=== PATIENT | male | born 1950 | race Caucasian/White ===

== ENCOUNTER 2021-12-19 08:58 | Day surgery (SDC) | payer MEDICARE, BC ==
--- NOTE | 2021-12-19 08:50 | HP ---
DATE OF SURGERY: 12/19/2021 HISTORY OF PRESENT ILLNESS: The patient is a 71-year-old had anemia with hemoglobin of 7.2, had some dark stools once in a while. No bright red blood. No pain. No change in bowel movements. Alternating stools and loose stools. Family history negative for colon cancer, negative for stomach cancer. Last colonoscopy in about 2002 and he had some polyps then. Given his anemia, it is felt that he would benefit from upper and lower endoscopy for further evaluation. PAST MEDICAL HISTORY: Hypertension, gastroesophageal reflux disease, chronic kidney disease. PAST SURGICAL HISTORY: Heart cath in the past. 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 Abdominal aortic aneurysm surgery in the past. Double hernia surgery in the past. Fistula in his arm in the past. MEDICATIONS: Glimepiride, amlodipine, metoprolol, iron plus vitamin C, PreserVision, vitamin B6, sodium bicarbonate, Sevelamer carbonate, Calcitriol, glucosamine chondroitin. ALLERGIES: IODINATED CONTRAST MEDIA. METHYLPHENIDATE (RITALIN). FAMILY HISTORY: Negative for colon cancer, negative for stomach cancer. SOCIAL HISTORY: No smoking or alcohol abuse. REVIEW OF SYSTEMS: Fourteen systems reviewed. No chest pain or palpitations. Other systems negative or noncontributory as above and per admission questionnaire. PHYSICAL EXAMINATION: GENERAL: No acute distress. HEENT: Sclerae nonicteric. NECK: No JVD. CHEST: Equal excursion, nonlabored breathing. CVS: Regular rate and rhythm. ABDOMEN: Soft. No peritoneal signs. EXTREMITIES: No significant edema. NEURO: Alert, oriented, moving extremities symmetrically. RECTAL: Deferred timed to endoscopy exam. PSYCH: Appropriate mood and affect. IMPRESSION: Anemia. He is in need of upper and lower for further evaluation to evaluate for the etiology. General risks of bleeding or infection, risk of bowel injury or perforation possibly requiring open procedure or ongoing morbidity, risk of missed or nondiagnosis or incomplete exam possibly requiring barium enema, barium swallow, other studies or procedures. General risk of anesthesia or sedation, risk of bowel prep, possibility of inability to determine the etiology of his anemia which may require further testing and/or other studies and work up. He understands and agrees to the planned procedure, will proceed with EGD and colonoscopy as an outpatient.
[2021-12-19] MEDS ORDERED: Lactated Ringers 1,000 ML IV SCH (09:30)
[2021-12-19 09:56] VITALS: O2SAT 97
[2021-12-19] MEDS ORDERED: D50W 50ML Vial IV SCH (10:30)
[2021-12-19] MEDS ORDERED: DIPRIVAN 200 MG/20 ML IV ONE ×3 (11:41→12:09)
[2021-12-19 13:30] VITALS: BP 146/72; PULSE 73
--- NOTE | 2021-12-19 14:19 | OP ---
SURGERY DATE/TIME: 12/19/2021 1142 PREOPERATIVE DIAGNOSIS: Anemia, need for upper and lower endoscopy. POSTOPERATIVE DIAGNOSES: 1) Mild erosive gastritis with some evidence of petechial hemorrhage without visible evidence of any large ulcers or other visible bleeding source. 2) Short segment early distal gastroesophagitis, path pending. 3) Fair but limited bowel prep. 4) Mild diverticulosis. 5) Small polyps transverse colon, sigmoid colon, rectosigmoid colon. PROCEDURES: 1) EGD with cold biopsy of antrum for Helicobacter pylori. 2) Cold biopsy distal esophagus to evaluate for very short segment of 1.5 mm early distal gastroesophagitis versus a little small island of Emerson's esophagus, path pending. 3) Colonoscopy to cecum. 4) Hot biopsy polypectomy small transverse colon polyp. 5) Hot biopsy polypectomy small sigmoid colon polyp x2. 6) Hot biopsy polypectomy small rectosigmoid colon polyps versus hyperplastic lesion x2. SURGEON: Dr. Tutu Hyde. ANESTHESIA: MAC. ESTIMATED BLOOD LOSS: Minimal. INDICATIONS: As noted above. Risks and benefits explained in detail and not limited to and consent obtained. DESCRIPTION OF PROCEDURE AND FINDINGS: The patient is taken to the endoscopy room. MAC anesthesia introduced. After official time out and no disagreement with planned procedure, bite block positioned. Video gastroscope easily passed down the esophagus to the patent pylorus to the junction into the third portion of the duodenum. The third, second and first portions of duodenum no signs of any active bleeding. No signs of any fresh or old blood. Back in the stomach there is some mild superficial erosions in the stomach and gastric erythema, some evidence of petechial hemorrhage. There is no visible evidence of any obvious ulcer or bleeding vessel. Cold biopsy taken in the antrum to evaluate for Helicobacter pylori. On retroflex the gastroesophageal junction is fairly snug against the scope. No signs of any large hiatal hernia. Again, he did have some evidence of petechial hemorrhage and some mild erosive gastritis but no major other source of any active bleeding. The scope is straightened. Gastroesophageal junction 40 cm. The Z-line was fairly crisp. There was a little small island of salmon-pink mucosa just above the Z-line. Whether this is some early distal gastroesophagitis versus early Emerson's, cold biopsy taken. Good hemostasis noted. The remainder of the esophagus grossly unremarkable. The patient tolerated this portion of the procedure well. Attention is then turned to colonoscopy. Digital rectal exam did not reveal any rectal masses. Video colonoscope inserted and passed up to the tortuous sigmoid, descending, transverse, ascending colon around to the cecum. Appendiceal orifice and valve well visualized. Prep overall was fair but on limited side. He did have several areas some liquidy stool, some dark liquidy stool more proximal. Otherwise, no signs of any fresh or bright blood in the colon. The scope is carefully withdrawn over the next 11 minutes. The cecum was reached. Appendiceal orifice and valve photo documented. The transverse colon, sigmoid colon and rectogismoid there were no small early polyps versus hyperplastic lesions. Otherwise he had diverticulosis mild to moderate in the left colon. There were no signs of any fresh or current active bleeding in the colon. The patient tolerated the procedure well. There were no immediate complications. Findings discussed with the family out in the waiting area. He possibly lost some blood from his erosive gastritis but whether he had some other etiology is unclear. I will see him back in the office. Discussed options if he wanted a PillCam, this can be ordered through GI or other studies per Dr. Duffy or if Dr. Duffy desired other studies or workup.
== END 2021-12-19 13:20 | disposition home or self-care (01) ==
LOC: SDC 08:58
PROVIDERS: ATTEND Surgery
DX: K29.70 Gastritis, unspecified, without bleeding (principal); D64.9 Anemia, unspecified; K21.00 Gastro-esophageal reflux disease with esophagitis, without bleeding; K57.30 Diverticulosis of large intestine without perforation or abscess without bleeding; K63.5 Polyp of colon; E11.9 Type 2 diabetes mellitus without complications
CPT/HCPCS: 82947; J2704